=== PATIENT | female | born 1995 | race Caucasian/White ===

== ENCOUNTER → 2016-09-02 | Outpatient (CLI) | payer SELFPAY | LOC: MOB LAB 11:37 | DX: Z20.2 Contact with and (suspected) exposure to infections with a predominantly sexual mode of transmission (principal) | CPT/HCPCS: 87491; 87591 ==

== ENCOUNTER → 2017-03-11 | Outpatient (CLI) | payer SELFPAY ==
--- NOTE | 2017-03-11 11:50 | DI ---
PA /LATERAL CHEST X-RAY, 03/11/2017 11:02 AM : Clinical History: Dyspnea. Previous Exam: None at this facility. There is no acute soft tissue or bony abnormality. Heart size is normal. Lungs are clear. Mediastinal structures are normal. There are no pulmonary nodules. Reading: Normal chest x-ray.
== END ==
LOC: MOB RAD 11:07
PROVIDERS: ATTEND Physician Assistant Medical
DX: R06.00 Dyspnea, unspecified (principal); R07.89 Other chest pain
CPT/HCPCS: 71020